=== PATIENT | male | born 1980 | race Two or more races ===

== ENCOUNTER 2020-06-03 18:47 | Emergency (ER) | payer MEDICAID, OTHER ==
[~2020-06-03] VITALS: Ht 175.3 cm; Wt 93.9 kg
[2020-06-03 20:55] VITALS: BP 121/75
[2020-06-03] MEDS ORDERED: cefTRIAXone SOD 1,000 MG VL IM ONE (22:45)
[2020-06-03] MEDS ORDERED: TETANUS-DIPTH-ACEL PERTUSSIS 0.5ML SYR Tdap IM ONE (22:45)
[2020-06-03] MEDS ORDERED: LIDOCAINE 1% HCL (LOCAL ANESTH.) INJ 20ML MDV IJ ONE (23:00)
== END 2020-06-03 23:42 | disposition home or self-care (01) ==
LOC: EDBD 18:47 → ER 18:51
DX: S01.81XA Laceration without foreign body of other part of head, initial encounter (principal); J32.9 Chronic sinusitis, unspecified; Y08.89XA Assault by other specified means, initial encounter; Y93.89 Activity, other specified; Y92.89 Other specified places as the place of occurrence of the external cause; Y99.8 Other external cause status
CPT/HCPCS: 70450; 70486; 90471; 90715; 96372; 99285; J0696; J2001